=== PATIENT | female | born 1990 | race Caucasian/White ===

== ENCOUNTER 2016-12-03 15:59 | Outpatient (CLI) | payer OTHER ==
[~2016-12-03 15:59] MED LIST: GAS-X80 MG PO; NEURONTIN300 MG PO; PHENERGAN EQUIV25 MG PO; SEROQUEL100 MG PO; TRAMADOL HCL50 MG PO; ZANTAC 150 MAX150 MG PO
--- NOTE | 2016-12-03 16:35 | DIAGNOSTIC IMAGING REPORT ---
PROCEDURE: XR LUMBAR SPINE 5 VIEWS INDICATION: BACK PAIN TECHNIQUE: Five views. COMPARISON: None. FINDINGS: Osseous structures and disc spaces are normal. No evidence of an acute process or fracture. No evidence of spondylolysis or spondylolisthesis. IMPRESSION: 1. Negative lumbar spine.
== END 2016-12-03 23:00 ==
LOC: XR SRH 15:59
DX: M54.5 Low back pain (principal)

== ENCOUNTER 2017-01-28 09:34 | Outpatient (CLI) | payer OTHER ==
--- NOTE | 2017-01-28 10:59 | DIAGNOSTIC IMAGING REPORT ---
PROCEDURE: MR LUMBAR SPINE W/O CONTRAST INDICATION: LBP; RT SCIATICA WITH RLE RADICULOPATHY TECHNIQUE: Noncontrast T1, T2, and STIR sagittal images. T1 and T2 axial images. COMPARISON: None. FINDINGS: The spinal cord and conus are normal. L1-2: Normal. L2-3: Normal. L3-4: Normal. L4-5: Normal. L5-S1: Normal. IMPRESSION: 1. Normal, no evidence of disc disease or degeneration.
== END 2017-01-28 23:00 ==
LOC: MRI SRH 09:34
DX: M54.5 Low back pain (principal); M54.30 Sciatica, unspecified side; M54.16 Radiculopathy, lumbar region